=== PATIENT | female | born 1940 | race Caucasian/White ===

== ENCOUNTER → 2017-10-15 | Outpatient (CLI) | payer MEDICARE, BC ==
[~2017-10-15] MED LIST: AMLO-96 PO; ATOR20TA22 PO; BAC PO; BACDS PO; CEP500 PO; CETI-169 PO; CETI-176 PO; DOC100 PO; FAM20 PO; FES4PT PO; FLAX100042 PO; FLUT10SP NS; FLUT9.9S; IBU600 PO; IBUP200C71 PO; IMIP50TA PO; LISI-355 PO; LOR10/325 PO; LOR5/325 PO; MET500 PO; METF-410 PO; MULT-820 PO; PHENA200 PO; POTA-53 PO; POTA10CA61 PO; PRAM0.1225 PO; TRAV2.5D4 OU
[2017-10-15 12:03] LABS: PLATELET COUNT, AUTOMATED 255 K/uL (150-450)
== END ==
LOC: LAB 11:42
PROVIDERS: ATTEND Family Medicine
DX: E61.1 Iron deficiency (principal); I10 Essential (primary) hypertension
CPT/HCPCS: 36415; 82310; 82374; 82435; 82565; 82728; 82947; 84132; 84295; 84520; 85025

== ENCOUNTER 2017-11-30 15:05 | Inpatient (IN) | payer MEDICARE, BC ==
[~2017-11-30] VITALS: Ht 157.5 cm; Wt 83.0 kg
[~2017-11-30 15:05] MED LIST changes: -CEPH500T7 PO; -DILT120C18 PO
--- NOTE | 2017-11-30 15:22 | ER Report ---
History and Physical Time Seen By MD: 15:22 Hx. of Stated Complaint: Sent from Dr. Aguilar's office for cardiac workup. New onset afib HPI/ROS CHIEF COMPLAINT: New-onset A. fib HISTORY OF PRESENT ILLNESS: 77-year-old female patient presents to emergency room with complaint of new onset A. fib. Patient was seen in her primary care provider's office and referred to emergency room. Patient was initially complaining of cough this been going on for several days. She states that they did lab work as well as an EKG. The EKG showed a atrial fibrillation with a ventricular rate of 120s to 140s. Patient did have an elevated white count of 17 ,000. She is referred to the emergency room due to her abnormal EKG. Patient states she's been feeling ill for the past several days, she can having fevers. She denies taking any medication for this. She did take Robitussin 1 but vomited. REVIEW OF SYSTEMS: Respiratory: As noted above Cardiovascular: No chest pain, no palpitations. Gastrointestinal: No vomiting, no abdominal pain. Musculoskeletal: No back pain. Allergies: Coded Allergies: solifenacin (Verified Allergy, Intermediate, RASH, 11/30/17) Sulfa (Sulfonamide Antibiotics) (Verified Adverse Reaction, Unknown, ) Home Meds Active Scripts Lisinopril/Hydrochlorothiazide (LISINOPRIL-HCTZ 20-25 MG TAB) 1 Each Tablet, 1 EACH PO QDAY, #90 TAB 4 Refills Prov:JORDEN AGUILAR MD 11/27/17 Fluticasone Propionate (Flonase Allergy Relief) 9.9 Ml [place].susp, 1 SPRAY NA QDAY for 90 Days, #3 BOTTLE 4 Refills Prov:JORDEN AGUILAR MD 09/24/17 Cetirizine Hcl (CETIRIZINE HCL) 10 Mg Tablet, 1 TAB PO QDAY for 90 Days, #90 TAB 4 Refills Prov:JORDEN AGUILAR MD 09/24/17 Amlodipine Besylate (AMLODIPINE BESYLATE) 5 Mg Tablet, 1 TAB PO QDAY for 90 Days , #90 TAB 4 Refills Prov:JORDEN AGUILAR MD 09/24/17 Pramipexole Di-Hcl (MIRAPEX) 0.125 Mg Tablet, 0.125 MG PO QHS for 90 Days, #90 TAB 4 Refills Prov:JORDEN AGUILAR MD 09/24/17 Atorvastatin Calcium (LIPITOR) 20 Mg Tablet, 0.5 TAB PO QDAY, #90 TAB Prov:JORDEN AGUILAR MD 09/24/17 Metformin Hcl (METFORMIN HCL) 500 Mg Tablet, 1 TAB PO BID, #180 TAB 4 Refills Prov:TREMAINE ROJAS MD 09/09/17 Past Medical/Surgical History Patient has a past medical history of breast leg syndrome, hypertension, pneumonia, urinary incontinence, diabetes. Patient has a surgical history of partial thyroidectomy, laparoscopic cholecystectomy, cataract surgery. Reviewed Nurses Notes: Yes Hx Smoking: No Smoking Status: Never Smoker Hx Substance Use Disorder: No Hx Alcohol Use: No Constitutional Vital Sign - Last 24 Hours 11/30/17 11/30/17 11/30/17 11/30/17 15:15 15:15 15:21 15:30 Temp 99.2 Pulse 140 131 116 Resp 22 41 28 B/P (MAP) 135/86 Pulse Ox 85 93 94 O2 Delivery Room Air O2 Flow Rate 3.0 11/30/17 11/30/17 11/30/17 11/30/17 15:45 16:00 16:30 16:31 Pulse 118 112 128 Resp 35 23 17 B/P (MAP) 126/51 (76) Pulse Ox 92 95 90 11/30/17 11/30/17 11/30/17 11/30/17 16:35 16:50 16:55 17:00 Pulse 105 Resp 23 B/P (MAP) 112/49 (70) 132/65 (87) 133/56 (81) 128/60 (82) 11/30/17 11/30/17 17:05 17:10 B/P (MAP) 127/57 (80) 131/59 (83) Intake and Output 11/30/17 11/30/17 12/01/17 15:00 23:00 07:00 Output Total 10 ml Balance -10 ml Physical Exam General Appearance: The patient is alert, has no immediate need for airway protection and no current signs of toxicity. Respiratory: Chest is non tender, lungs are clear to auscultation. Cardiac: regular rate and rhythm Gastrointestinal: Abdomen is soft and non tender, no masses, bowel sounds normal. Musculoskeletal: Neck: Neck is supple and non tender. Extremities have full range of motion and are non tender. Skin: No rashes or lesions. DIFFERENTIAL DIAGNOSIS: After history and physical exam differential diagnosis was considered for New onset atrial fibrillation, pneumonia, urinary tract infection, urosepsis. Medical Decision Making Data Points Laboratory Hematology Test 11/30/17 14:33 11/30/17 16:26 11/30/17 17:57 Troponin I < 0.012 ng/ml B-Type Natriuretic Peptide 57 pg/ml (0-100) Prothrombin Time 14.0 seconds (12.0-14.4) Prothromb Time International Ratio 1.07 Lactate 1.5 mmol/L (0.7-2.1) Urine Color Yellow Urine Clarity Slightly-cloudy Urine pH 5.0 pH (4.8-9.5) Urine Specific [place] 1.013 Urine Protein 30 mg/dL (NEGATIVE) Urine Glucose (UA) Negative mg/dL (NEGATIVE) Urine Ketones 20 mg/dL (NEGATIVE) Urine Blood Moderate (NEGATIVE) Urine Nitrite Negative (NEGATIVE) Urine Bilirubin Negative (NEGATIVE) Urine Urobilinogen Negative mg/dL (0.2-1.9) Urine Leukocyte Esterase Small (NEGATIVE) Urine RBC 2 /HPF (0-2/HPF) Urine WBC 65 /HPF (0-5/HPF) Urine WBC Clumps Few /HPF Urine Squamous Epithelial Cells None /LPF (NONE-FEW) Urine Amorphous Crystals Few /HPF Urine Bacteria Few /HPF (NONE-FEW) Urine Mucus None /HPF (NONE-FEW) Chemistry Test 11/30/17 14:33 11/30/17 16:26 11/30/17 17:57 Troponin I < 0.012 ng/ml B-Type Natriuretic Peptide 57 pg/ml (0-100) Prothrombin Time 14.0 seconds (12.0-14.4) Prothromb Time International Ratio 1.07 Lactate 1.5 mmol/L (0.7-2.1) Urine Color Yellow Urine Clarity Slightly-cloudy Urine pH 5.0 pH (4.8-9.5) Urine Specific [place] 1.013 Urine Protein 30 mg/dL (NEGATIVE) Urine Glucose (UA) Negative mg/dL (NEGATIVE) Urine Ketones 20 mg/dL (NEGATIVE) Urine Blood Moderate (NEGATIVE) Urine Nitrite Negative (NEGATIVE) Urine Bilirubin Negative (NEGATIVE) Urine Urobilinogen Negative mg/dL (0.2-1.9) Urine Leukocyte Esterase Small (NEGATIVE) Urine RBC 2 /HPF (0-2/HPF) Urine WBC 65 /HPF (0-5/HPF) Urine WBC Clumps Few /HPF Urine Squamous Epithelial Cells None /LPF (NONE-FEW) Urine Amorphous Crystals Few /HPF Urine Bacteria Few /HPF (NONE-FEW) Urine Mucus None /HPF (NONE-FEW) Coagulation Test 11/30/17 16:26 Prothrombin Time 14.0 seconds Prothromb Time International Ratio 1.07 Urinalysis Test 11/30/17 17:57 Urine Color Yellow Urine Clarity Slightly-cloudy Urine pH 5.0 pH (4.8-9.5) Urine Specific [place] 1.013 Urine Protein 30 mg/dL (NEGATIVE) Urine Glucose (UA) Negative mg/dL (NEGATIVE) Urine Ketones 20 mg/dL (NEGATIVE) Urine Blood Moderate (NEGATIVE) Urine Nitrite Negative (NEGATIVE) Urine Bilirubin Negative (NEGATIVE) Urine Urobilinogen Negative mg/dL (0.2-1.9) Urine Leukocyte Esterase Small (NEGATIVE) Urine RBC 2 /HPF (0-2/HPF) Urine WBC 65 /HPF (0-5/HPF) Urine WBC Clumps Few /HPF Urine Squamous Epithelial Cells None /LPF (NONE-FEW) Urine Amorphous Crystals Few /HPF Urine Bacteria Few /HPF (NONE-FEW) Urine Mucus None /HPF (NONE-FEW) EKG/Imaging Imaging Exam type: CHEST PA AND LAT History: Chest Pain Comparison: March 17, 2009. Findings: The lungs are free of acute effusions, infiltrates or edema. There is a calcified granuloma projecting over the left midlung field. The cardiac silhouette is normal in size. There are moderate spondylotic changes of the thoracic spine. Surgical clips are present in the right upper quadrant IMPRESSION: 1. No acute cardiac pulmonary process seen Report Dictated By: Vinita Govea MD at 11/30/2017 4:59 PM Report E-Signed By: Vinita Govea MD at 11/30/2017 5:02 PM ED Course/Re-evaluation ED Course Patient was admitted and examined, history and physical were obtained. Differential diagnoses were considered. On examination lungs were clear, heart was regular. An INR was done, a troponin. The results were unremarkable. With the elevated white count, the urinary tract infection and the abnormal EKG I patient should be admitted. I discussed the case with Dr. Marcial, hospitalist. He felt that after reviewing the EKGs the patient was likely having a sick sinus syndrome as he did notice some P waves. However he felt that with the urinary tract infection patient should be admitted. Requested that a urine catheterization be done and a culture done that. Blood cultures were obtained prior to admission. The urinary catheterization showed small except E[place] with 65 white cells per high-power field. I discussed this with family who verbalized understanding and agreement with plan. Decision to Disposition Date: Nov 30, 2017 Decision to Disposition Time: 17:35 Depart Departure Latest Vital Signs Vital Signs Date Time Temp Pulse Resp B/P (MAP) Pulse Ox O2 Delivery O2 Flow Rate FiO2 11/30/17 17:10 131/59 (83) 11/30/17 17:00 105 23 11/30/17 16:30 90 11/30/17 15:21 3.0 11/30/17 15:15 99.2 Room Air Impression: Primary Impression: UTI (urinary tract infection) Condition: Condition Unchanged Disposition: Admitted from ER Referrals: JORDEN AGUILAR MD (PCP) Problem Qualifiers Primary Impression: UTI (urinary tract infection) Urinary tract infection type: acute cystitis Hematuria presence: with hematuria Qualified Codes: N30.01 - Acute cystitis with hematuria TAM MCDOWELL Nov 30, 2017 15:22
[2017-11-30] MEDS ORDERED: DILTIAZEM 5 MG/ML 5ML IVPUSH IVP ONE (15:50)
[2017-11-30 16:54] LABS: INR 1.07
--- NOTE | 2017-11-30 17:06 | RADIOLOGY IMAGING REPORT ---
[place]AC[place] [facility] [place]IENT NAME: Suzanna Keating : 1940 MR: [id number] V: [id number] EXAM DATE: ORDERING PHYSICIAN: TAM MCDOWELL TECHNOLOGIST: Location: [facility] [place] Patient: Suzanna Keating : 1940 Visit/Account:[id number] Date of Sevice: 11/30/2017 Exam type: CHEST PA AND LAT History: Chest Pain Comparison: March 17, 2009. Findings: The lungs are free of acute effusions, infiltrates or edema. There is a calcified granuloma projecti ng over the left midlung field. The cardiac silhouette is normal in size. There are moderate spondy lotic changes of the thoracic spine. Surgical clips are present in the right upper quadrant IMPRESSION: 1. No acute cardiac pulmonary process seen Report Dictated By: Vinita Govea MD at 11/30/2017 4:59 PM Report E-Signed By: Vinita Govea MD at 11/30/2017 5:02 PM WSN:[email or web address]
[2017-11-30] MEDS ORDERED: ACETAMINOPHEN 500 MG TAB PO ONE (18:50)
[2017-11-30 19:51] VITALS: BP 133/49
[2017-11-30] MEDS ORDERED: NS(*) 0.9% 1000 ML BAG 1,000 ML IV PRN (20:06)
[2017-11-30] MEDS ORDERED: FLUSH 10 ML SYR IVP PRN (20:10)
[2017-11-30] MEDS ORDERED: INSULIN HUM LISPRO 100 UN/ML 3 ML VIAL SUBQ PRN (20:30)
--- NOTE | 2017-11-30 20:43 | History & Physical ---
History of Present Illness Chief Complaint Weak History of Present Illness 77yo female with PMHx significant for type 2 DM, HTN, hyperlipidemia. She reports onset of dysuria, frequency, fevers/chills over the past week. She has also noted poor appetite with some nausea and a few episodes of vomiting. No diarrhea. She has also had occasional cough (no sputum). She was evaluated in the outpatient clinic and ultimately in the ER. She was found to have evidence of an acute UTI with elevated WBC count. She was also felt to be in atrial fibrillation, but with further review of her EKG it appears to be multifocal atrial tachycardia. She has not had any CP. She denies any awareness of rapid or irregular heart rate. She was recommended for admission. History Problems: (1) Type 2 diabetes mellitus Status: Chronic (2) HTN (hypertension) Status: Chronic (3) Hyperlipidemia Status: Chronic (4) History of partial thyroidectomy Status: Resolved (5) History of cholecystectomy Status: Resolved (6) Environmental allergies Status: Chronic (7) UTI (urinary tract infection) Status: Acute Home Meds Active Scripts Lisinopril/Hydrochlorothiazide (LISINOPRIL-HCTZ 20-25 MG TAB) 1 Each Tablet, 1 EACH PO QDAY, #90 TAB 4 Refills Prov:JORDEN AGUILAR MD 11/27/17 Fluticasone Propionate (Flonase Allergy Relief) 9.9 Ml [place].susp, 1 SPRAY NA QDAY for 90 Days, #3 BOTTLE 4 Refills Prov:JORDEN AGUILAR MD 09/24/17 Cetirizine Hcl (CETIRIZINE HCL) 10 Mg Tablet, 1 TAB PO QDAY for 90 Days, #90 TAB 4 Refills Prov:JORDEN AGUILAR MD 09/24/17 Amlodipine Besylate (AMLODIPINE BESYLATE) 5 Mg Tablet, 1 TAB PO QDAY for 90 Days , #90 TAB 4 Refills Prov:JORDEN AGUILAR MD 09/24/17 Pramipexole Di-Hcl (MIRAPEX) 0.125 Mg Tablet, 0.125 MG PO QHS for 90 Days, #90 TAB 4 Refills Prov:JORDEN AGUILAR MD 09/24/17 Atorvastatin Calcium (LIPITOR) 20 Mg Tablet, 0.5 TAB PO QDAY, #90 TAB Prov:JORDEN AGUILAR MD 09/24/17 Metformin Hcl (METFORMIN HCL) 500 Mg Tablet, 1 TAB PO BID, #180 TAB 4 Refills Prov:TREMAINE ROJAS MD 09/09/17 Allergies: Coded Allergies: solifenacin (Verified Allergy, Intermediate, RASH, 11/30/17) Sulfa (Sulfonamide Antibiotics) (Verified Adverse Reaction, Unknown, ) Patient History: FH: heart attack BROTHER OR SISTER, FH: heart failure BROTHER OR SISTER, FH: stroke FATHER, MOTHER (mom with CV disease), , Age:42 BROTHER OR SISTER, Hx Smoking: No Smoking Status: Never Smoker Caffeine Intake: Coffee Caffeine/Cups Per Day: 2-3 Hx Alcohol Use: No Hx Substance Use Disorder: No Social Drug Use: Never Review of Systems Constitutional: Fever, Chills Neurological: Weakness Eyes: No Vision Change, No Loss of Vision ENT: No Hearing Loss, No Sinus Congestion, No Sore Throat Cardiovascular: No Chest Pain, No Palpitations Respiratory: Shortness of Breath, Cough Gastrointestinal: No Nausea, No Vomiting, Diarrhea, Hematemesis, Hematochezia, Melena, Abdominal Pain Genitourinary: Dysuria, No Hematuria Exam Vital Signs Vital Signs Date Time Temp Pulse Resp B/P (MAP) Pulse Ox O2 Delivery O2 Flow Rate FiO2 11/30/17 19:53 99.3 11/30/17 19:51 108 16 133/49 (77) 96 Nasal Cannula 3.0 General Appearance: Alert, Awake Neuro: No Gross deficits Eyes: PERRLA ENT: Oropharynx Clear Neck: No Masses, Other (healed scar at base on neck anteriorly) Cardiovascular: Other (Irregular with distant tones no murmur noted) Respiratory: Clear to Auscultation (few scattered rhonchi) Chest: No Tenderness GI: Abd Soft and Non-Tender (obese/BS present) : No CVA Tenderness Lymph: No Adenopathy Extremities: Warm, Perfused Integumentary: Skin Intact without Lesion / Mass Psych: Alert & Oriented X3 Medical Decision Making Data Points Item Value Date Time White Blood Count 17.8 k/uL H 11/30/17 1433 Hemoglobin 15.7 g/dL 11/30/17 1433 Hematocrit 46.4 % 11/30/17 1433 Platelet Count 264 K/uL 11/30/17 1433 Sodium Level 134 mmol/L L 11/30/17 1433 Potassium Level 3.3 mmol/L L 11/30/17 1433 Chloride Level 95 mmol/L L 11/30/17 1433 Carbon Dioxide Level 23 mmol/L 11/30/17 1433 Blood Urea Nitrogen 18 mg/dl 11/30/17 1433 Creatinine 1.00 mg/dl 11/30/17 1433 Glomerular Filtration Rate Calc 53.5 11/30/17 1433 Random Glucose 163 mg/dl H 11/30/17 1433 Calcium Level 9.2 mg/dl 11/30/17 1433 Total Bilirubin 1.2 mg/dl 11/30/17 1433 Aspartate Amino Transf (AST/SGOT) 22 U/L 11/30/17 1433 Alanine Aminotransferase (ALT/SGPT) 34 U/L 11/30/17 1433 Alkaline Phosphatase 97 U/L 11/30/17 1433 Total Protein 7.5 gm/dl 11/30/17 1433 Albumin 4.1 g/dl 11/30/17 1433 Troponin I < 0.012 ng/ml 11/30/17 1433 B-Type Natriuretic Peptide 57 pg/ml 11/30/17 1433 Lactate 1.5 mmol/L 11/30/17 1626 Urine Color Yellow 11/30/17 1757 Urine Clarity Slightly-cloudy 11/30/17 1757 Urine pH 5.0 pH 11/30/17 1757 Urine Specific [place] 1.013 11/30/17 1757 Urine Protein 30 mg/dL 11/30/17 1757 Urine Glucose (UA) Negative mg/dL 11/30/17 175 Urine Ketones 20 mg/dL H 11/30/17 1757 Urine Blood Moderate 11/30/17 1757 Urine Bilirubin Negative 11/30/17 1757 Urine Nitrite Negative 11/30/17 1757 Urine Urobilinogen Negative mg/dL 11/30/17 1757 Urine Leukocyte Esterase Small H 11/30/17 1757 Urine RBC 2 /HPF 11/30/17 1757 Urine WBC 65 /HPF 11/30/17 1757 Urine WBC Clumps Few /HPF 11/30/17 1757 Urine Squamous Epithelial Cells None /LPF 11/30/17 1757 Urine Amorphous Crystals Few /HPF 11/30/17 1757 Urine Bacteria Few /HPF 11/30/17 1757 Urine Mucus None /HPF 11/30/17 1757 Influenza Type A (Rapid) Negative 11/30/17 1431 Influenza Type B (Rapid) Negative 11/30/17 1431 EKG / Imaging EKG Interpretation Appears to be multifocal atrial tachycardia Imaging PATIENT NAME: Suzanna Keating : 1940 MR: [id number] V: [id number] EXAM DATE: ORDERING PHYSICIAN: TAM MCDOWELL TECHNOLOGIST: Location: [facility] [place] Patient: Suzanna Keating : 1940 Visit/Account:[id number] Date of Sevice: 11/30/2017 Exam type: CHEST PA AND LAT History: Chest Pain Comparison: March 17, 2009. Findings: The lungs are free of acute effusions, infiltrates or edema. There is a calcified granuloma projecting over the left midlung field. The cardiac silhouette is normal in size. There are moderate spondylotic changes of the thoracic spine. Surgical clips are present in the right upper quadrant IMPRESSION: 1. No acute cardiac pulmonary process seen Report Dictated By: Vinita Govea MD at 11/30/2017 4:59 PM Report E-Signed By: Vinita Govea MD at 11/30/2017 5:02 PM WSN:[email or web address] Assessment and Plan Problems: (1) UTI (urinary tract infection) Status: Acute Assessment & Plan: She has an acute urinary tract infection. Cultures have been obtained of urine and blood. Will start on Rocephin 2gm IV q24hrs. Will modify regimen as needed based on culture results. (2) Tachycardia Status: Acute Assessment & Plan: She appears to be in multifocal atrial tachycardia. Place on telemetry. Will give gentle IV fluids. Check TSH. Watch closely. (3) HTN (hypertension) Status: Chronic Assessment & Plan: Hold her medications for now. Monitor BPs and resume her amlodipine, lisinopril, HCTZ as needed. (4) Type 2 diabetes mellitus Status: Chronic Assessment & Plan: ADA diet, monitor glucoses, resume her metformin, use SSI as needed. (5) Hyperlipidemia Status: Chronic Assessment & Plan: Continue atorvastatin. Copies to: JORDEN AGUILAR MD Venous Thromboembolism Antithrombotics Is Pt On Any Antithrombotics?: Yes Exam Sepsis Risk: No Definite Risk Problem Qualifiers (1) UTI (urinary tract infection): Urinary tract infection type: acute cystitis Hematuria presence: with hematuria Qualified Codes: N30.01 - Acute cystitis with hematuria LLOYD LEWIS MD Nov 30, 2017 20:43
[2017-11-30] MEDS ORDERED: KCL 2 MEQ/ML 20 MEQ/10 ML VIAL 20 MEQ in NS(*) 0.9% 1000 ML BAG 1,000 ML IV PRN (20:44)
[2017-11-30] MEDS: metFORMIN HCL 500 MG TAB PO SCH (21:17)
[2017-11-30] MEDS: PRAMIPEXOLE DIHYDROCHL 0.25 MG PO SCH (21:17)
[2017-11-30] MEDS: ATORVASTATIN 10 MG TAB PO SCH (21:18)
[2017-11-30] MEDS: KCL/NS* 20 MEQ/1000 ML PREMIX 1,000 ML IV PRN (21:27)
[2017-11-30] MEDS: cefTRIAXone 2 GM VIAL IVP SCH (21:28)
[2017-11-30 23:12] VITALS: BP 128/83
[2017-12-01] MEDS: ACETAMINOPHEN 325 MG TAB PO PRN ×3 (02:08→21:29)
[2017-12-01 05:51] VITALS: BP 118/60
[2017-12-01 06:02] LABS: PLATELET COUNT, AUTOMATED 200 K/uL (150-450)
[2017-12-01 07:44] VITALS: BP 132/91
[2017-12-01] MEDS: FLUTICASONE PROP 0.05% 16 GM SCH (09:02)
[2017-12-01] MEDS: metFORMIN HCL 500 MG TAB PO SCH ×2 (09:02→20:15)
[2017-12-01] MEDS: ENOXAPARIN 40 MG/0.4ML SYR SC SCH (09:02)
[2017-12-01] MEDS: CETIRIZINE HCL 10 MG TAB PO SCH (09:02)
[2017-12-01] MEDS: KCL/NS* 20 MEQ/1000 ML PREMIX 1,000 ML IV PRN (09:12)
[2017-12-01 11:02] VITALS: BP 128/71
[2017-12-01 14:53] VITALS: BP 124/74
[2017-12-01] MEDS ORDERED: DILTIAZEM IR 30 MG TAB PO ONE (15:00)
[2017-12-01 15:24] VITALS: Ht 157.5 cm; Wt 83.0 kg
--- NOTE | 2017-12-01 18:41 | Hospitalist Progress Note ---
Subjective Progress Notes Subjective The patient feels much better today. Physical Exam Vital Signs Date Time Temp Pulse Resp B/P (MAP) Pulse Ox O2 Delivery O2 Flow Rate FiO2 12/01/17 15:50 97.9 12/01/17 14:53 110 22 124/74 (91) 93 Nasal Cannula 0.5 Intake and Output 12/02/17 07:00 Intake Total 1743 ml Balance 1743 ml Intake Oral 1080 ml IV Total 663 ml # Voids 3 # Bowel Movements 1 General Appearance: Alert, Awake, No Acute Distress Cardiovascular: Regular Rate and Rhythm Respiratory: Clear to Auscultation GI: Soft and Non-Tender Extremities: Warm, Perfused Psych: Appropriate Mood & Affect Result Diagram: 12/01/1753012/01/17530 Item Value Date Time Calcium Level 8.4 mg/dl 12/01/17530 Total Bilirubin 0.8 mg/dl 12/01/17 05 Aspartate Amino Transf (AST/SGOT) 23 U/L 12/01/17 0531 Alanine Aminotransferase (ALT/SGPT) 38 U/L 12/01/17 0531 Alkaline Phosphatase 95 U/L 12/01/17 0531 Total Protein 6.0 gm/dl L 12/01/17 0531 Albumin 3.3 g/dl L 12/01/17 0531 Thyroid Stimulating Hormone (TSH) 1.12 uIU/ml 12/01/17 0531 Assessment and Plan Problems: (1) UTI (urinary tract infection) Status: Acute Assessment & Plan: She has an acute urinary tract infection. Cultures have been obtained of urine and blood. Urine cultures are growing a gram negative beti. She is on Rocephin 2gm IV q24hrs. Will modify regimen as needed based on culture results. (2) Tachycardia Status: Acute Assessment & Plan: She appears to be in multifocal atrial tachycardia. Placed on telemetry. Will give gentle IV fluids. Check TSH. Heart rate has increased today. She takes amlodipine at home for HTN. Will DC and start Cardizem. (3) HTN (hypertension) Status: Chronic Assessment & Plan: Hold her medications for now. Monitor BPs and resume her amlodipine, lisinopril, HCTZ as needed. (4) Type 2 diabetes mellitus Status: Chronic Assessment & Plan: ADA diet, monitor glucoses, resume her metformin, use SSI as needed. (5) Hyperlipidemia Status: Chronic Assessment & Plan: Continue atorvastatin. Time Spent on Plan of Care: < 30 min Exam Sepsis Risk: Sepsis Risk Problem Qualifiers (1) UTI (urinary tract infection): Urinary tract infection type: acute cystitis Hematuria presence: with hematuria Qualified Codes: N30.01 - Acute cystitis with hematuria ALCIRA LEWIS MD Dec 01, 2017 18:41
[2017-12-01 20:11] VITALS: BP 125/60
[2017-12-01] MEDS: ATORVASTATIN 10 MG TAB PO SCH (20:15)
[2017-12-01] MEDS: PRAMIPEXOLE DIHYDROCHL 0.25 MG PO SCH (20:16)
[2017-12-01] MEDS ORDERED: DILTIAZEM CD 120 MG CAPCR PO SCH (21:00)
[2017-12-01] MEDS: cefTRIAXone 2 GM VIAL IVP SCH (21:29)
[2017-12-01 22:28] VITALS: BP 131/71
[2017-12-02 04:34] VITALS: BP 144/91
[2017-12-02] MEDS: KCL/NS* 20 MEQ/1000 ML PREMIX 1,000 ML IV PRN (06:13)
[2017-12-02 06:36] LABS: PLATELET COUNT, AUTOMATED 186 K/uL (150-450)
[2017-12-02 07:45] VITALS: BP 141/59
[2017-12-02] MEDS: FLUTICASONE PROP 0.05% 16 GM SCH (09:13)
[2017-12-02] MEDS: ENOXAPARIN 40 MG/0.4ML SYR SC SCH (09:13)
[2017-12-02] MEDS: CETIRIZINE HCL 10 MG TAB PO SCH (09:13)
[2017-12-02] MEDS: metFORMIN HCL 500 MG TAB PO SCH (09:13)
[2017-12-02] MEDS ORDERED: DILT120C18 PO (10:23)
[2017-12-02] MEDS ORDERED: CEPH500T7 PO (10:23)
--- NOTE | 2017-12-02 10:30 | Hospitalist Depart ---
Discharge Summary Reason for Hosp/Final Diag: (1) UTI (urinary tract infection) Status: Acute Hospital Course & Plan: Her urine culture was positive for E. coli. She was started on empiric treatment with ceftriaxone. She will complete a course of oral Keflex. (2) Tachycardia Status: Acute Hospital Course & Plan: She did present with tachycardia and her EKG showed a multifocal atrial tachycardia. She has been started on diltiazem, and is now maintaining a sinus rhythm. (3) HTN (hypertension) Status: Chronic Hospital Course & Plan: She had been on chronic treatment with amlodipine, lisinopril, and hydrochlorothiazide. These have been discontinued in favor of the diltiazem. Her blood pressures have been stable, but she may require further dose modification in the outpatient setting. (4) Type 2 diabetes mellitus Status: Chronic Hospital Course & Plan: She is on chronic treatment with metformin. (5) Hyperlipidemia Status: Chronic Hospital Course & Plan: She is on chronic treatment with atorvastatin. Departure Latest Vital Signs Vital Signs 12/02/17 07:58 Pulse Ox 88 Weight (Pounds): 183 Result Diagram: 12/02/17 0549 12/02/17 0549 Condition: Improved Discharge: Home, Self Care Follow-Up Labs: Finger Sticks Discharge Instructions Home Meds Active Scripts Cephalexin 500 Mg Tab (KEFLEX 500 MG TAB) 500 Mg Tablet, 500 MG PO Q6H, #28 TAB Prov:MANDY MERLOS DO 12/02/17 Diltiazem Hcl (DILTIAZEM 24HR CD) 120 Mg Cap.er.24h, 120 MG PO HS, #30 TAB Prov:MANDY MERLOS DO 12/02/17 Fluticasone Propionate (Flonase Allergy Relief) 9.9 Ml [place].susp, 1 SPRAY NA QDAY for 90 Days, #3 BOTTLE 4 Refills Prov:JORDEN AGUILAR MD 09/24/17 Cetirizine Hcl (CETIRIZINE HCL) 10 Mg Tablet, 1 TAB PO QDAY for 90 Days, #90 TAB 4 Refills Prov:JORDEN AGUILAR MD 09/24/17 Pramipexole Di-Hcl (MIRAPEX) 0.125 Mg Tablet, 0.125 MG PO QHS for 90 Days, #90 TAB 4 Refills Prov:JORDEN AGUILAR MD 09/24/17 Atorvastatin Calcium (LIPITOR) 20 Mg Tablet, 0.5 TAB PO QDAY, #90 TAB Prov:JORDEN AGUILAR MD 09/24/17 Metformin Hcl (METFORMIN HCL) 500 Mg Tablet, 1 TAB PO BID, #180 TAB 4 Refills Prov:TREMAINE ROJAS MD 09/09/17 Discontinued Scripts Lisinopril/Hydrochlorothiazide (LISINOPRIL-HCTZ 20-25 MG TAB) 1 Each Tablet, 1 EACH PO QDAY, #90 TAB 4 Refills Prov:JORDEN AGUILAR MD 11/27/17 Amlodipine Besylate (AMLODIPINE BESYLATE) 5 Mg Tablet, 1 TAB PO QDAY for 90 Days , #90 TAB 4 Refills Prov:JORDEN AGUILAR MD 09/24/17 Diet: Diabetic Activity: As Tolerated Copies to: JORDEN AGUILAR MD Venous Thromboembolism Antithrombotics Is Pt On Any Antithrombotics?: Yes Problem Qualifiers (1) UTI (urinary tract infection): Urinary tract infection type: acute cystitis Hematuria presence: with hematuria Qualified Codes: N30.01 - Acute cystitis with hematuria (2) HTN (hypertension): Hypertension type: essential hypertension Qualified Codes: I10 - Essential ( primary) hypertension MANDY MERLOS DO Dec 02, 2017 10:30
== END 2017-12-02 12:55 | disposition home or self-care (01) | DRG 690 ==
LOC: ER 15:12 → MED 18:02
PROVIDERS: ADMIT Internal Medicine; ATTEND Internal Medicine
DX: N30.01 Acute cystitis with hematuria (principal); I47.1 Supraventricular tachycardia; I10 Essential (primary) hypertension; E11.9 Type 2 diabetes mellitus without complications; E89.0 Postprocedural hypothyroidism; E78.5 Hyperlipidemia, unspecified; G25.81 Restless legs syndrome; B96.20 Unspecified Escherichia coli [E. coli] as the cause of diseases classified elsewhere; Z88.2 Allergy status to sulfonamides; Z88.8 Allergy status to other drugs, medicaments and biological substances; Z90.49 Acquired absence of other specified parts of digestive tract; Z79.84 Long term (current) use of oral hypoglycemic drugs
CPT/HCPCS: 36415; 36416; 71046; 81001; 82040; 82247; 82310; 82374; 82435; 82565; 82947; 82948; 83605; 83880; 84075; 84132; 84155; 84295; 84443; 84450; 84460; 84484; 84520; 85025; 85610; 87040; 87077; 87088; 87186; 96374; 99285; A4353; J0696; J1650; J3480; J3490

== ENCOUNTER → 2017-11-30 | Outpatient (CLI) | payer MEDICARE, BC ==
[~2017-11-30] MED LIST changes: +CEPH500T7 PO; +DILT120C18 PO
[2017-11-30 14:44] LABS: PLATELET COUNT, AUTOMATED 264 K/uL (150-450)
--- NOTE | 2017-11-30 15:39 | EKG ---
FACILITY: [facility] PATIENT NAME: LEANDRA ORTIZ : [id number] MR: [id number] V: [id number] EXAM DATE: ORDERING PHYSICIAN: JORDEN AGUILAR TECHNOLOGIST: LEANDRA Murcia Reason : TACHYCARDIA Blood Pressure : / mmHG Vent. Rate : 139 BPM Atrial Rate : 166 BPM P-R Int : 000 ms QRS Dur : 084 ms QT Int : 302 ms P-R-T Axes : 000 000 056 degrees QTc Int : 459 ms Undetermined rhythm Inferior infarct (cited on or before 30-NOV-2017) Abnormal ECG When compared with ECG of 30-NOV-2017 12:58, Current undetermined rhythm precludes rhythm comparison, needs review Referred By: JEFF Confirmed By:
--- NOTE | 2017-11-30 15:39 | EKG ---
FACILITY: [facility] - [place] PATIENT NAME: LEANDRA ORTIZ : [id number] MR: [id number] V: [id number] EXAM DATE: ORDERING PHYSICIAN: JORDEN AGUILAR TECHNOLOGIST: LEANDRA Murcia Reason : TACHYCARDIA Blood Pressure : / mmHG Vent. Rate : 121 BPM Atrial Rate : 110 BPM P-R Int : 000 ms QRS Dur : 082 ms QT Int : 326 ms P-R-T Axes : 000 -06 068 degrees QTc Int : 462 ms Atrial fibrillation with premature ventricular or aberrantly conducted complexes Inferior infarct , age undetermined Abnormal ECG No previous ECGs available Referred By: JEFF Confirmed By:
== END ==
LOC: RESP 13:58
PROVIDERS: ATTEND Family Medicine
DX: R30.0 Dysuria (principal); R00.0 Tachycardia, unspecified
CPT/HCPCS: 36415; 81001; 82040; 82247; 82310; 82374; 82435; 82565; 82947; 84075; 84132; 84155; 84295; 84450; 84460; 84520; 85025

== ENCOUNTER → 2017-12-10 | Outpatient (CLI) | payer MEDICARE, BC ==
[2017-12-01 15:24] VITALS: BMI 33.5
[~2017-12-10] MED LIST changes: +CEPH500T7 PO; +DILT120C18 PO
--- NOTE | 2017-12-13 09:32 | RADIOLOGY IMAGING REPORT ---
FACILITY: [facility] PATIENT NAME: LEANDRA ORTIZ : [id number] MR: [id number] V: [id number] EXAM DATE: ORDERING PHYSICIAN: JORDEN AGUILAR TECHNOLOGIST: Allegra Motley EXAMINATION:TWO-DIMENSIONAL ECHOCARDIOGRAPH REASON:MULTIFOCAL ATRIAL TACHYCARDIA 2D Measurements (normal values in centimeters) LV endLV endRV endVent.LV PostAorticLeftPercent DiastolicSystolicDiastolicSeptumWallRootAtriumShortening (3.5-5.7)(0.9-2.6)(0.6-1.1)(0.6-1.1)(2.0-3.7)(1.9-4.0)(25-35%) [id number]% STROKE VOLUME: 46ml ESTIMATED EJECTION FRACTION:69% PARASTERNAL LONG AXIS: Overall left ventricular systolic function does appear to be normal within normal ranges. There is borderline concentric left ventricular thickening. No evidence for any outflow tract obstruction. Chamber sizes all appear to be normal. Right ventricle appears to contract normally & the TAPSE is measured at 2.4. Color examination of the valves reveals only a trace amount of mitral insufficiency in this view. Color examination of the aortic valve was unremarkable. PARASTERNAL SHORT AXIS: Overall left ventricular function again appears to be within normal ranges. No specific wall motion abnormalities are noted. There is borderline concentric left ventricular thickening present. The aortic valve not well delineated but probably is trileaflet in configuration. Color examination of the valves reveals a trace of pulmonic insufficiency & a trace of tricuspid insufficiency present. APICAL FOUR AND TWO CHAMBER: Normal left ventricular ejection fraction. Normal chamber sizes. Aortic valve area & mitral valve area both measure within normal ranges at 2.2 & 2.1cm2 respectively. The left atrial & right atrial volumes are measured within normal ranges at 24 & 9ml/m2 respectively. Mild amount of mitral insufficiency is noted. SUBCOSTAL VIEW: No pericardial effusion was noted. No atrioseptal or ventriculoseptal defects were appreciated. Doppler examination of the mitral valve in diastole does reveal the A wave > E wave. OVERALL IMPRESSION: 1. Normal left ventricular ejection fraction of 69% with a mild decrease in diastolic function. 2. There is borderline concentric left ventricular thickening but no evidence for any outflow tract obstruction. All the chamber sizes appear to be normal. 3. A probable trileaflet aortic valve with no abnormalities. 4. A mild amount of mitral insufficiency with no mitral stenosis. 5. A trace of tricuspid & pulmonic insufficiency with estimated right ventricular systolic pressures at 46mm Hg which does include an estimated right atrial pressures of 3mm Hg indicating moderate pulmonary hypertension & increased right ventricular systolic pressures. Dictated by: Damion Palomino M.D. on 12/11/2017 at 10:21 Transcribed by: GABRIELA on 12/11/2017 at 10:43 Approved by: Damion Palomino M.D. on 12/13/2017 at 9:31 [facility]
== END ==
LOC: US 03:08
PROVIDERS: ATTEND Family Medicine
DX: I50.30 Unspecified diastolic (congestive) heart failure (principal); I51.7 Cardiomegaly; I34.0 Nonrheumatic mitral (valve) insufficiency; I37.1 Nonrheumatic pulmonary valve insufficiency; I07.1 Rheumatic tricuspid insufficiency; I27.20 Pulmonary hypertension, unspecified
CPT/HCPCS: 93306

== ENCOUNTER → 2018-05-17 | Outpatient (CLI) | payer MEDICARE, BC ==
[2017-12-01 15:24] VITALS: BMI 33.5
[~2018-05-17] MED LIST changes: +AMOX-559 PO; +DILT-145 PO; +DILT240C PO; +IBUP-136 PO; -IBUP200C71 PO; -METF-410 PO; +METF-411 PO
== END ==
LOC: LAB 09:26
PROVIDERS: ATTEND Family Medicine
DX: E11.9 Type 2 diabetes mellitus without complications (principal)
CPT/HCPCS: 36415; 82040; 82247; 82310; 82374; 82435; 82565; 82947; 83036; 84075; 84132; 84155; 84295; 84450; 84460; 84520

== ENCOUNTER → 2018-06-10 | Outpatient (CLI) | payer MEDICARE, BC ==
[2017-12-01 15:24] VITALS: BMI 33.5
[~2018-06-10] MED LIST changes: +AMLO-111 PO; -AMLO-96 PO; +LISI5TAB25 PO; -METF-411 PO; +METF-450 PO
== END ==
LOC: LAB 08:50
PROVIDERS: ATTEND Family Medicine
DX: I10 Essential (primary) hypertension (principal)
CPT/HCPCS: 36415; 82310; 82374; 82435; 82565; 82947; 84132; 84295; 84520

== ENCOUNTER → 2018-08-16 | Outpatient (CLI) | payer MEDICARE, BC ==
[2017-12-01 15:24] VITALS: BMI 33.5
[~2018-08-16] MED LIST changes: +LISI-362 PO; +OXYGENHOME INH
[2018-08-16 09:48] LABS: PLATELET COUNT, AUTOMATED 298 K/uL (150-450)
== END ==
LOC: LAB 09:21
PROVIDERS: ATTEND Family Medicine
DX: E11.9 Type 2 diabetes mellitus without complications (principal); I10 Essential (primary) hypertension
CPT/HCPCS: 36415; 82310; 82374; 82435; 82565; 82947; 83036; 84132; 84295; 84520; 85025

== ENCOUNTER 2018-09-29 14:30 | Outpatient (RCR) | payer MEDICARE, BC ==
[2017-12-01 15:24] VITALS: BMI 33.5
--- NOTE | 2018-09-28 18:00 | PT INITIAL EVALUATION ---
MEDICAL DIAGNOSIS: Pain of right scapulae TREATMENT DIAGNOSIS: same, cervical pain with radiating pain DATE OF ONSET: 09/19/18 SUBJECTIVE: Suzanna Keating presents to physical therapy with complaints of neck pain and pain on superior aspect of scapulae that started for no apparent reason around the August. She reports that the pain has been getting better with each passing day. She reports that the pain in her neck and R shoulder blade is almost gone and rates it to be 1/10. She reports that she has been using ice and heat along with rest. She denies any accidents, surgeries, night pain, or unexplained weight loss. Pain location is cervical C6- 7 central and superior aspect of R scapulae and described as achy. Pain scale is 1 on a ten point pain scale. Pain is worse with unknown and better with unknown. REHAB PROBLEM LIST: Increased Pain Decreased ROM Decreased Function Decreased ADL's Decreased Mobility PREVIOUS MEDICAL HISTORY: See EMR OCCUPATION: Retired OBJECTIVE: Posture: She demonstrated forward cervical spine, B rounded shoulders, thoracic kyphosis, and decreased lumbar lordosis. ROM: Cervical AROM: L rotation: minimal restriction with painful end feel. R rotation: NIL with muscular end feel. extension: NIL with muscular end feel. flexion: NIL with muscular end feel. R sidebending: minimal restriction with pain ful end feel. L sidebending: NIL with normal end feel. retraction: NIL with normal end feel. protrusion: NIL with normal end feel. Palpation: TTP: cervical C6-7 central and superior aspect of R scapulae Special Tests: Repeated RET with extension: muscular stretch during the test with increased cervical AROM following with decreased radiating pain. Repeated flexion: muscular stretch during the test with decreased cervical AROM following. Mobility: Independent ASSESSMENT: Suzanna will benefit from skilled physical therapy to address the listed impairments to improve function and QOL. Her initial classification is a posterior derangement that has responded well to extension based principles. Short Term Goals 2 weeks: Pt will demonstrate directional preference to improve function and QOL. 4 weeks: Pt will demonstrate abolished cervical pain and abolished radiating pain to improve function and QOL. 6 weeks: Pt will demonstrate return to prior level of function without abolished cervical pain and abolished radiating pain to improve function and QOL.. Patient's Goals reduce pain PLAN: Patient to be seen for Manual Therapy/STM/MET Strengthening/condition Range of Motion Spinal Stabilization Work Hardening/Cond Stretching Neuromuscular Re-ed Closed Chain Program Posture/Body mechanics Home Exercise Program Therapeutic Activities 2x/Week for 6 Weeks If you have any questions, comments, or concerns about this report or plan, please contact me at . Thank you, Samm Shah, PT, DPT MTDD
[~2018-09-29 14:30] MED LIST changes: -AMLO-111 PO; +AMLO-125 PO; +DILT120C12 PO; -DILT120C18 PO; +LISI20TA29 PO
--- NOTE | 2018-09-29 15:06 | PT PLAN OF CARE ---
Physician: Lilia Rankin MD Patient is being seen: 1 examination + 1 treatment Therapist: Samm Shah, PT, DPT Medical Diagnosis: Pain of right scapulae Treatment Diagnosis: same, cervical pain with radiating pain Date of Onset: 09/19/18 Date of Initial Evaluation: 09/27/18 Date patient was last seen: 09/29/18 Number of treatments: 2 Number of cancellations/No shows: 0 INTERVENTIONS: Manual Therapy/STM/MET Strengthening/condition Range of Motion Spinal Stabilization Work Hardening/Cond Stretching Neuromuscular Re-ed Closed Chain Program Posture/Body mechanics Home Exercise Program Therapeutic Activities GOALS: 2 weeks: Pt will demonstrate directional preference to improve function and QOL. 4 weeks: Pt will demonstrate abolished cervical pain and abolished radiating pain to improve function and QOL. 6 weeks: Pt will demonstrate return to prior level of function without abolished cervical pain and abolished radiating pain to improve function and QOL.. PATIENT'S GOAL: reduce pain Status of Patient's Goals: MET Patient Compliance: Excellent Prognosis: Good Reasons for continuing therapy: This is a discharge note for Suzanna Keating. She reports that she is doing well. She reports that she has been performing her specific exercise as prescribed. She reports that the pain has completely resolved. She demonstrates significant improvement in cervical AROM in all directions and all motions are equal as compared to other side along with more normalized end feels. She is independent on her specific exercise. She is independent on how to prevent reoccurrences in the future. She will be discharged from PT. Posture: She demonstrated forward cervical spine, B rounded shoulders, thoracic kyphosis, and decreased lumbar lordosis. ROM: Cervical AROM: L rotation: minimal restriction with painful end feel. R rotation: NIL with muscular end feel. extension: NIL with muscular end feel. flexion: NIL with muscular end feel. R sidebending: minimal restriction with pain ful end feel. L sidebending: NIL with normal end feel. retraction: NIL with normal end feel. protrusion: NIL with normal end feel. Palpation: TTP: No longer TTP Special Tests: Repeated RET with extension: muscular stretch during the test with increased cervical AROM following with decreased radiating pain. Repeated flexion: muscular stretch during the test with decreased cervical AROM following. Mobility: Independent If you have any questions, please contact me at [phone]. Thank you, Samm Shah, PT, DPT MTDD
== END 2018-09-29 18:00 | disposition home or self-care (01) ==
LOC: PT 14:30
PROVIDERS: ATTEND Family Medicine
DX: M89.8X1 Other specified disorders of bone, shoulder (principal)
CPT/HCPCS: 97161

== ENCOUNTER → 2018-11-19 | Outpatient (CLI) | payer MEDICARE, BC ==
[2017-12-01 15:24] VITALS: BMI 33.5
--- NOTE | 2018-11-19 14:03 | RADIOLOGY IMAGING REPORT ---
FACILITY: [facility] PATIENT NAME: Suzanna Keating : 1940 MR: [id number] V: [id number] EXAM DATE: ORDERING PHYSICIAN: JORDEN AGUILAR TECHNOLOGIST: Location: [facility] [place] Patient: Suzanna Keating : 1940 Visit/Account:[id number] Date of Sevice: 11/19/2018 DEXA Scan Clinical history: Postmenopausal. Comparison: None available. LUMBAR SPINE: The bone mineral density (BMD) measured from L1-L4 correlates with a Z-score zero and a T-score of -1 .2 which is osteopenia as defined by the World Health Organization. The corresponding risk of fractu re in the lumbar spine is to 3 times increased compared with a young adult reference population. HIP: Bone mineral density (BMD) measured in the Left total hip region correlates with a Z-score 0.9 and a T-score of by 0.7 which is Normal as defined by the World Health Organization. The corresponding ris k of fracture in the hip is 1-2 times increased compared with a young adult reference population. T score left femoral neck -1.4 Bone mineral density (BMD) measured in the Femoral Neck region measures 0.837 g/cm2. Impression: 1. Lumbar spine: Osteopenia. 2. Left Hip: Normal. 3. Femoral Neck: Bone Mineral Density is 0.837 g/cm2 The next DEXA scan of this patient should include the following sites: L1-L4 and the left hip. FRAX? WHO Fracture Risk Assessment Tool link: <http://www.shef.ac.uk/FRAX/tool.jsp?locationValue=9> PLEASE NOTE: 1) The World Health Organization defines low BMD as follows: T-score Normal > -1 Osteopenia < -1 and > -2.5 Osteoporosis < -2.5 without fractures Established osteoporosis < -2.5 with fractures 2) In general, you may wish to consider: Diagnosis Treatment Follow-up DEXA Normal BMD Prevention 2-3 years Osteopenia Prevention/therapy 1-2 years Osteoporosis Therapy Yearly 3) Fracture risk estimated from the T-score is more accurate for vertebral fractures (often spontane ous) than for hip fractures. Report Dictated By: Vinita Govea MD at 11/19/2018 1:56 PM Report E-Signed By: Vinita Govea MD at 11/19/2018 1:58 PM WSN:ABRAM
== END ==
LOC: RAD 13:00
PROVIDERS: ATTEND Family Medicine
DX: M85.80 Other specified disorders of bone density and structure, unspecified site (principal)
CPT/HCPCS: 77080

== ENCOUNTER → 2019-02-17 | Outpatient (CLI) | payer MEDICARE, BC ==
[2017-12-01 15:24] VITALS: BMI 33.5
[~2019-02-17] MED LIST changes: +CIPR-215 PO; +FOSF3PAC3 PO
[2019-02-17 15:48] LABS: PLATELET COUNT, AUTOMATED 310 K/uL (150-450)
== END ==
LOC: LAB 15:22
PROVIDERS: ATTEND Family Medicine
DX: E11.9 Type 2 diabetes mellitus without complications (principal); I10 Essential (primary) hypertension; R39.15 Urgency of urination; R35.0 Frequency of micturition; R30.0 Dysuria; B96.20 Unspecified Escherichia coli [E. coli] as the cause of diseases classified elsewhere
CPT/HCPCS: 36415; 81001; 82040; 82247; 82310; 82374; 82435; 82565; 82947; 83036; 84075; 84132; 84155; 84295; 84450; 84460; 84520; 85025; 87077; 87088; 87186